=== PATIENT | female | born 1985 | race African-American/Black ===

== ENCOUNTER 2017-10-19 17:52 | Emergency (ER) | payer OTHER ==
[2017-10-19] MEDS ORDERED: IBUPROFEN 600 MG TAB PO ONE (18:16)
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
[2017-10-19] MEDS ORDERED: AMOXICILLIN/CLAVULANATE POT 875/125 MG TAB PO ONE (18:34)
[2017-10-19] MEDS ORDERED: HEPATITIS B VIRUS VACCINE-PF 20 MCG/ML INJ IM ONE (18:34)
[2017-10-19 19:40] VITALS: BP 149/98
[2017-10-20 03:58] LABS: HEPATITIS B CORE AB TOTAL NEGATIVE (NEGATIVE); HEPATITIS B SURFACE ANTIGEN NEGATIVE (NEGATIVE); HEPATITIS C ANTIBODY TOTAL NEGATIVE (NEGATIVE)
== END 2017-10-19 19:35 | disposition home or self-care (01) ==
LOC: CED 17:52
DX: L03.116 Cellulitis of left lower limb (principal); Z23 Encounter for immunization; W50.3XXA Accidental bite by another person, initial encounter; Y92.099 Unspecified place in other non-institutional residence as the place of occurrence of the external cause; Y99.0 Civilian activity done for income or pay; Y93.89 Activity, other specified
CPT/HCPCS: 86704-90; G0010; G0472